=== PATIENT | female | born 1970 | race Caucasian/White ===

== ENCOUNTER 2024-01-19 23:23 | Emergency (ER) | payer MEDICAID ==
[~2024-01-19] VITALS: Ht 170.2 cm; Wt 105.0 kg
[2024-01-19 23:27] VITALS: BP 153/80; PULSE 94; RESP 17; TEMP 98.2; O2SAT 99
== END 2024-01-20 01:41 | disposition left against medical advice (07) ==
LOC: ER 23:24
DX: Z48.00 Encounter for change or removal of nonsurgical wound dressing (principal); Z53.21 Procedure and treatment not carried out due to patient leaving prior to being seen by health care provider

== ENCOUNTER 2024-04-02 20:54 | Emergency (ER) | payer MEDICAID ==
[~2024-04-02] VITALS: Ht 172.7 cm; Wt 100.0 kg
[~2024-04-02 20:54] MED LIST: ACET-655; APIX5TAB3 PO; DOXY-460 PO; MULT-25 PO; MUPI22OI30
[2024-04-02 21:02] VITALS: BP 130/85; PULSE 91; RESP 18; TEMP 98.4; O2SAT 99
[2024-04-02] MEDS: bacitracin 15gm ointment TP ONE (22:15)
[2024-04-02] MEDS ORDERED: CEPH-585 PO (22:17)
[2024-04-02] MEDS ORDERED: DOXY-462 PO (22:17)
[2024-04-02] MEDS: DOXYCYCLINE 100MG CAPSULE PO STA (23:16)
[2024-04-02] MEDS: cephalexin 250mg capsule PO ONE (23:16)
[2024-04-02] MEDS: ondansetron 4mg rapidly disintigrating tab PO ONE (23:16)
== END 2024-04-02 23:20 | disposition home or self-care (01) ==
LOC: ER 20:55
DX: L02.415 Cutaneous abscess of right lower limb (principal); L03.115 Cellulitis of right lower limb; Z88.2 Allergy status to sulfonamides; Z79.2 Long term (current) use of antibiotics; Z79.899 Other long term (current) drug therapy
CPT/HCPCS: 10060; 99284; A6258; A6449